=== PATIENT | female | born 1985 | race Caucasian/White ===

== ENCOUNTER 2025-02-06 10:04 | Emergency (ER) | payer MEDICAID, SELFPAY ==
[2025-02-06 10:04] VITALS: BP 135/96; PULSE 119; RESP 24; TEMP 37; O2SAT 97; BMI 51.3
[2025-02-06 11:22] LABS: Absolute Lymphocyte Count 0.37 X10^3/uL (0.83-4.51); Absolute Neutrophil Count 5.8 X10^3/uL (2.0-7.7); Hematocrit 38.9 % (37-47); Hemoglobin 12.4 g/dL (12.0-15.0); Lymphocyte # 0.37 X10^3/ul (0.83-4.51); Lymphocyte % 5.9 % (19-41); Mean Corp Hgb Conc 31.9 g/dL (32-36); Mean Corpuscular Hgb 24.5 pg (27.0-32.0); Mean Corpuscular Volume 76.9 fL (81-99); Mean Platelet Vol. 9.8 fl (6.2-12.0); Monocyte# 0.15 X10^3/uL; Monocyte% 2.4 % (0-10); NRBC Flagged by Analyzer 0 % (0-5); Neutrophil # 5.78 X10^3/uL (2.7-7.7); Neutrophil % 91.4 % (47-70); POSITIVE DIFFERENTIAL YES; Platelet Count 295 K/mm3 (150-450); RBC Distribution Width CV 13.8 % (11.6-14.6); RBC Distribution Width SD 38.1 fl (35.1-43.9); Red Blood Count 5.06 M/mm3 (4.2-5.4); White Blood Count 6.3 K/mm3 (4.4-11.0)
[2025-02-06 11:54] LABS: ALB/GLOB Ratio 1.2 RATIO (0.9-2.4); AST(SGOT) 16 U/L (<=31); Alanine Aminotransfer ALT/SGPT 13 U/L (<=34); Albumin, Serum 4.1 g/dL (3.5-5.0); Alkaline Phosphatase 109 U/L (35-104); Anion Gap 11 (5-15); BUN 13 mg/dL (4-19); BUN/Creat Ratio 13.1 RATIO (10-20); Calcium,Total 8.8 mg/dL (7.6-11.0); Carbon Dioxide 21.4 mmol/L (21.0-32.0); Chloride 104 mmol/L (98-108); Creatinine, Serum 0.97 mg/dL (0.70-1.20); EST Glomerular Filtration Rate 75 (>60); Estimated Creatinine Clearance 97.61 ml/min (50-250); Globulin 3.4 g/dL (2.2-4.2); Glucose 104 mg/dL (70-99); Lipase 27 U/L (13-75); Potassium 4.2 mmol/L (3.3-5.1); Protein, Total 7.5 g/dL (5.9-8.4); Sodium Level 137 mmol/L (133-145); Total Bilirubin 0.62 mg/dL (0.00-1.30)
[2025-02-06 12:04] VITALS: BP 148/83; PULSE 99; RESP 18; O2SAT 99
[2025-02-06 12:08] LABS: Internal QC Validated? YES +Cl - CLEAR BKGD
[2025-02-06 12:09] LABS: Pregnancy, Serum, hCG Quali. NEGATIVE Negative
--- NOTE | 2025-02-06 12:15 | EKG12_ITS ---
Test Reason : chest ache Blood Pressure : */* mmHG Vent. Rate : 103 BPM Atrial Rate : 103 BPM P-R Int : 138 ms QRS Dur : 68 ms QT Int : 362 ms P-R-T Axes : 70 -2 28 degrees QTcB Int : 474 ms Sinus tachycardia Low voltage QRS Nonspecific T wave abnormality Abnormal ECG Confirmed by JUANJ NGUYEN, BRIAN ([id number]), legal editor DANIELA FARRIS ([id number]) on 02/07/2025 11:13:10 AM Referred By: Confirmed By: BRIAN ARITA MD
[2025-02-06] MEDS: 0.9% Normal Saline (1000mL) 1,000 ML 999 ML IV (12:50)
[2025-02-06] MEDS: Acetaminophen 500 MG Tablet 1000 MG PO (12:51)
[2025-02-06] MEDS: Metoclopramide 10 MG/2 ML Vial IV (12:51)
--- NOTE | 2025-02-06 13:16 | EX.ED.DYSGE1 ---
HPI History of Present Illness Chief Complaint: Nausea/Vomiting/Diarrhea Narrative Narrative: Patient is a 40-year-old female with past medical history of PCOS, migraine headaches, Sue thyroiditis, asthma, borderline personality disorder, anxiety, depression who presents to the emergency department chief complaint of nausea, vomiting, diarrhea as well as having migraine headache. Patient states that yesterday they were camping and noted that she got overheated she tried to lay down in the tent with fans to cool off but states that this triggered her migraine. She states that this feels like a typical migraine for her. She also states that after that she has noted developed nausea vomiting diarrhea she denies any recent sick contacts. Patient states that they did have mayonnaise based items while camping but states that other individuals ate the same thing and did not get ill like this. Patient states that she has had a manager cardiac cath on for a week and a half now that was prescribed by her primary care physician as a been looking at her heart. [facility] Medical History Migraine PCOS (polycystic ovarian syndrome) Sue thyroiditis Asthma Borderline personality disorder Depressed Anxiety Home Medications ?Medication ?Instructions ?Recorded ?Last Taken ?Type buspirone 10 mg tablet 10 mg PO TID 02/06/25 02/05/25 History lamotrigine 100 mg tablet 100 mg PO DAILY 02/06/25 02/05/25 History levocetirizine 5 mg tablet 5 mg PO DAILY 02/06/25 02/05/25 History levothyroxine 112 mcg tablet 112 mcg PO DAILY 02/06/25 02/05/25 History magnesium oxide 400 mg (241.3 mg 400 mg PO QHS 02/06/25 02/05/25 History magnesium) tablet metoprolol succinate 25 mg 25 mg PO DAILY 02/06/25 02/05/25 History tablet,extended release 24 hr omeprazole 40 mg capsule,delayed 40 mg PO DAILY 02/06/25 02/05/25 History release onabotulinumtoxinA 100 unit 200 unit subcut .COMPLEX 02/06/25 Unknown History solution for injection (Botox) ondansetron 4 mg disintegrating 4 mg PO Q6H PRN nausea and 02/06/25 Unknown Rx tablet vomiting #20 tabs Allergy/AdvReac Type Severity Reaction Status Date / Time codeine (From Guaiatussin AC) Allergy Mild Itching Verified 02/06/25 10:08 guaifenesin (From Allergy Mild Itching Verified 02/06/25 10:08 Guaiatussin AC) loratadine Allergy Mild Other Verified 02/06/25 10:08 Opioids - Morphine Analogues Allergy Mild Other Verified 02/06/25 10:08 topiramate (From Topamax) Allergy Mild Other Verified 02/06/25 10:08 Social History Smoking Status: Never smoker ROS ROS ED ROS Narrative Constitutional: Complains of headache as noted above denies fevers, chills, lightness, dizziness Eyes: Denies change in vision double vision blurry vision Cardiovascular: Complains of some chest discomfort denies palpitations Respiratory: Denies coughing wheezing shortness of breath Abdomen: Complains of nausea vomiting diarrhea as noted above denies abdominal pain : Denies any urinary symptoms Neurological: Denies any numbness, wheeze, tingling Musculoskeletal: Denies back pain Skin: Denies any rashes or lesions EXAM Physical Exam Narrative Exam Narrative: General: Patient was lying in bed rest comfortably did not appear to be in acute distress Head: Atraumatic, normocephalic Eyes: PERRL bilaterally, EOMI bilateral, no conjunctival injection noted Neck: Soft, supple, trachea midline Cardiovascular: Patient tachycardic with regular rhythm no murmurs gallops rubs noted Respiratory: Clear to auscultation bilaterally Abdomen: Soft, nondistended, no tenderness to palpation Extremities: +5/5 strength noted in the bilateral upper and lower extremities, radial pulses +2/4 in bilateral extremities, no pedal edema on exam Neurological: Patient following commands as she was at [facility] year is 2024 Skin: Warm, dry, tact no rashes or lesions noted Const Vital Signs: 02/06/25 10:04 02/06/25 12:04 02/06/25 14:00 Temperature 98.6 F Temperature Source Oral Pulse Rate 119 H 99 81 Respiratory Rate 24 H 18 14 Blood Pressure 135/96 H 148/83 H 137/81 H Blood Pressure Mean 109 104 99 Pulse Ox 97 99 99 Oxygen Delivery Method Room Air Room Air Room Air MDM MDM MDM Narrative Medical decision making narrative: Patient is a 40-year-old female who presents to the emergency department chief complaint of nausea vomiting diarrhea migraine headache. On the differential diagnose includes but not limited to viral gastroenteritis, food poisoning, migraine headache, ACS, pneumothorax. Once workup is obtained reviewed she will be reevaluated. Patient be given IV fluids Reglan and Tylenol. Patient CBC reviewed showed no evidence leukocytosis white blood count normal at 6.3, he was 12.4, platelet count of 295. Patient sodium is 137, potassium of 4.2, creatinine normal at 0.97. Patient's AST and ALT were 16 and 13 respectively. Patient's troponin was less than 6 with a delta troponin of less than 6. Patient's EKG showed sinus tachycardia with a rate of 103 bpm. Patient's lipase was normal at 27, TSH normal at 1.22 and free T4 and T3 were normal at 1.30 and 2.4 respectively. Patient's is negative. Patient urinalysis reviewed showed no evidence of infection. I reevaluated the patient and she is feeling much better she would like to go home at this point in time. Patient was advised to follow-up with her doctor in the outpatient setting and return with worsening symptoms or concerns. She is agreeable to plan all question concerns answered she was discharged home in stable condition. Lab Data Labs: Laboratory Results - last 24 hr 02/06/25 02/06/25 02/06/25 11:15 13:07 14:00 WBC 6.3 RBC 5.06 Hgb 12.4 Hct 38.9 MCV 76.9 L MCH 24.5 L MCHC 31.9 L RDW Std Deviation 38.1 RDW Coeff of Paddy 13.8 Plt Count 295 MPV 9.8 Immature Gran % (Auto) 0.300 Neut % (Auto) 91.4 H Lymph % (Auto) 5.9 L [place] % (Auto) 2.4 Eos % (Auto) 0.0 Baso % (Auto) 0.0 Absolute Neuts (auto) 5.8 Absolute Lymphs (auto) 0.37 L Nucleated RBC % 0 Sodium 137 Potassium 4.2 Chloride 104 Carbon Dioxide 21.4 Anion Gap 11 BUN 13 Creatinine 0.97 Estim Creat Clear Calc 97.61 Est GFR (MDRD) Non-Af 75 BUN/Creatinine Ratio 13.1 Glucose 104 H Calcium 8.8 Total Bilirubin 0.62 AST 16 ALT 13 Alkaline Phosphatase 109 H Troponin T High Sens < 6 Troponin T Hi Sens 2 Hr < 6 Total Protein 7.5 Albumin 4.1 Globulin 3.4 Albumin/Globulin Ratio 1.2 Lipase 27 TSH 1.220 Free T4 1.30 Free T3 pg/dL 2.4 Serum , Qual NEGATIVE Urine Color Yellow Urine Clarity Sl. Cloudy Urine pH 5.0 Ur Specific [place] 1.020 Urine Protein 30 H Urine Glucose (UA) Normal Urine Ketones 15 H Urine Occult Blood 25 H Urine Nitrite Negative Urine Bilirubin 1 H Urine Urobilinogen Normal Ur Leukocyte Esterase 25 H Urine RBC 0-5 SEEN Urine WBC 0-5 SEEN Ur Squamous Epith Cells 0-5 SEEN Urine Bacteria 0 SEEN Urine Mucus 0 SEEN Discharge Plan Triage Chief Complaint: Nausea/Vomiting/Diarrhea ED Provider: Michelet Starr Dx/Rx/DC Orders Clinical Impression: Headache, migraine Prescriptions: New ondansetron 4 mg tablet,disintegrating 4 mg PO Q6H PRN (Reason: nausea and vomiting) Qty: 20 0RF No Action Botox 100 unit recon soln 200 unit subcut .COMPLEX Rx Instructions: 200 units subcutaneously every 3 months; omeprazole 40 mg capsule,delayed release(DR/EC) 40 mg PO DAILY magnesium oxide 400 mg (241.3 mg magnesium) tablet 400 mg PO QHS buspirone 10 mg tablet 10 mg PO TID metoprolol succinate 25 mg tablet extended release 24 hr 25 mg PO DAILY lamotrigine 100 mg tablet 100 mg PO DAILY levothyroxine 112 mcg tablet 112 mcg PO DAILY levocetirizine 5 mg tablet 5 mg PO DAILY Primary Care Provider: Wilma Domínguez Referrals: Wilma Domínguez [Other] Activity Restrictions/Additional Instructions: Your blood work here today did not show any acute findings. Follow-up your doctor in outpatient setting. Return with worsening symptoms or any other concerns Print Language: [place] Disposition Disposition: Home, Self Care
[2025-02-06 13:52] LABS: Free T3 2.4 pg/mL (2.18-3.98); Troponin T High Sensitivity < 6 ng/L (<=14)
[2025-02-06 14:00] VITALS: BP 137/81; PULSE 81; RESP 14; O2SAT 99
[2025-02-06 14:04] LABS: Troponin T High Sens 2 HR < 6 ng/L (<=14)
[2025-02-06 14:38] LABS: Bacteria 0 SEEN /hpf (None Seen); Mucous, Urine 0 SEEN /hpf (<or=2+)
[2025-02-06 14:40] LABS: Color, Urine Yellow (Yellow); Glucose, Dipstick Normal (Normal); Ketone-Dipstick 15 mg/dl (Negative); Leukocyte Esterase-Dipstick 25 /ul (Negative); Nitrite-Dipstick Negative (Negative); Occult Blood-Urine 25 /ul (Negative); Protein-Dipstick 30 mg/dl (Negative); Urine Clarity Sl. Cloudy (Clear); Urine Urobilinogen Normal (Normal)
[2025-02-06 14:41] LABS: Urine Bilirubin Dipstick 1 mg/dL (Negative)
[2025-02-06 14:58] LABS: Red Blood Cells-Urine 0-5 SEEN /hpf (0-5); Squamous Epithelial Cells - UA 0-5 SEEN /hpf (5-10); White Blood Cells 0-5 SEEN /hpf (0-5)
[2025-02-06 15:12] VITALS: BP 140/82
== END 2025-02-06 15:13 | disposition home or self-care (01) ==
PROVIDERS: Emergency Provider Emergency Medicine; Visit Provider Emergency Medicine
DX: G43.909 Migraine, unspecified, not intractable, without status migrainosus (principal); F60.3 Borderline personality disorder; F41.9 Anxiety disorder, unspecified; R19.7 Diarrhea, unspecified; J45.909 Unspecified asthma, uncomplicated; E06.3 Autoimmune thyroiditis; F32.A Depression, unspecified; Z79.890 Hormone replacement therapy; Z79.899 Other long term (current) drug therapy
CPT/HCPCS: 80053; 81001; 83690; 84439; 84443; 84481; 84484; 84703; 85025; 87077; 87086; 87088; 93005; 96361; 96374; 99282